=== PATIENT | male | born 1955 | race Caucasian/White ===

== ENCOUNTER 2017-04-14 09:23 | Inpatient (IN) | payer OTHER ==
[~2017-04-14] VITALS: Ht 175.3 cm; Wt 80.8 kg
[2017-04-14] MEDS ORDERED: TAMS0.4C31 PO (09:45)
[2017-04-14] MEDS ORDERED: FINA5TAB11 PO (09:45)
[2017-04-14] MEDS ORDERED: LISI-604 PO (09:45)
[2017-04-14] MEDS ORDERED: ATEN50TA PO (09:45)
[2017-04-14] MEDS ORDERED: KETOROLAC 30MG/ML VIAL IV ONE (10:45)
[2017-04-14 10:49] LABS: BASOPHILS % 0.7 % (0.0-2.0); EOSINOPHILS % 0.7 % (0.0-5.0); HEMOGLOBIN. 15.2 g/dL (14.0-18.0); MEAN CORPUSCULAR HEMOGLOBIN 29.2 pg (28.0-32.0); MEAN CORPUSCULAR VOLUME 86.4 fL (80.0-94.0); MONOCYTES % 7.8 % (2.0-8.0); NEUTROPHILS % 71.8 % (40.0-76.0); PLATELET 240 x1000/uL (130-400); RED CELL DISTRIBUTION WIDTH 12.8 % (11.6-14.6)
[2017-04-14 10:58] LABS: INR 1.1; PROTHROMBIN TIME 10.9 sec (9.4-11.6)
[2017-04-14 11:07] LABS: CARBON DIOXIDE 24 mEq/L (21-32); CHLORIDE 108 mEq/L (98-107); TROPONIN I < 0.02 ng/mL (0.00-0.04)
[2017-04-14] MEDS ORDERED: ENOXAPARIN 80MG/0.8ML SYR SUBCUT ONE (11:15)
[2017-04-14] MEDS ORDERED: ASPIRIN 325MG EC TABLET PO ONE (11:15)
[2017-04-14] MEDS ORDERED: MORPHINE SULFATE 4 MG/ML CPJ (NOT FOR IM USE) IV ONE (11:45)
[2017-04-14] MEDS ORDERED: DILTIAZEM HCL 5MG/ML 5ML VIAL IV PRN (11:45)
[2017-04-14] MEDS ORDERED: MAGNESIUM/ALUMINUM HYDROXIDE/SIMETHICONE 30ML UDC PO PRN (12:15)
[2017-04-14] MEDS ORDERED: ONDANSETRON HCL 4MG/2ML VIAL IV PRN (12:15)
[2017-04-14] MEDS ORDERED: CLONIDINE 0.1MG TABLET PO PRN (12:15)
[2017-04-14] MEDS ORDERED: ACETAMINOPHEN 325MG TABLET PO PRN (12:15)
[2017-04-14] MEDS ORDERED: IPRATROPIUM/ALBUTEROL 0.5-3(2.5)MG/3ML NEB INH PRN (12:15)
[2017-04-14 13:45] VITALS: BP 142/85
[2017-04-14 13:57] VITALS: BP 142/85
[2017-04-14] MEDS: METOPROLOL TARTRATE 50MG TABLET PO SCH ×2 (14:22→21:00)
[2017-04-14 15:58] VITALS: BP 125/75
[2017-04-14] MEDS ORDERED: DILTIAZEM HCL 60MG TABLET PO SCH (16:00)
[2017-04-14] MEDS: DIGOXIN 500MCG/2ML AMP IV SCH ×2 (16:49→17:38)
[2017-04-14 17:26] LABS: CREATINE KINASE 43 IU/L (39-308); CREATINE KINASE MB FRACTION 0.6 ng/mL (0.5-3.6); TROPONIN I < 0.02 ng/mL (0.00-0.04)
[2017-04-14 17:58] VITALS: BP 139/97
[2017-04-14 20:00] VITALS: BP 112/70
[2017-04-14] MEDS: ENOXAPARIN 80MG/0.8ML SYR SUBCUT SCH (21:19)
[2017-04-14] MEDS: TAMSULOSIN HCL 0.4MG SR CAPSULE PO SCH (21:19)
[2017-04-14] MEDS: LISINOPRIL 10MG TABLET PO SCH (21:20)
[2017-04-14] MEDS: FINASTERIDE 5MG TABLET PO SCH (21:20)
[2017-04-14 22:00] VITALS: BP 118/77
[2017-04-15] VITALS (12 sets, daily range): BP systolic 90–136; BP diastolic 57–73
[2017-04-15 01:26] LABS: CREATINE KINASE 37 IU/L (39-308); CREATINE KINASE MB FRACTION 0.5 ng/mL (0.5-3.6); TROPONIN I < 0.02 ng/mL (0.00-0.04)
[2017-04-15] MEDS: HYDROCODONE/ACETAMINOPHEN 5/325MG TABLET PO PRN ×2 (04:33→21:40)
[2017-04-15 05:53] LABS: *AMPHETAMINES SCREEN URINE NEGATIVE (NEGATIVE); *BARBITURATES SCREEN URINE NEGATIVE (NEGATIVE); *BENZODIAZEPINES SCREEN URINE NEGATIVE (NEGATIVE); *COCAINE SCREEN URINE NEGATIVE (NEGATIVE); CANNABINOID URINE SCREEN NEGATIVE (NEGATIVE); METHADONE URINE SCREEN NEGATIVE (NEGATIVE); OPIATES URINE SCREEN PRESUMTIVE POSITIVE (NEGATIVE); PHENCYCLIDINE URINE SCREEN NEGATIVE (NEGATIVE)
[2017-04-15 06:58] LABS: BASOPHILS % 0.5 % (0.0-2.0); EOSINOPHILS % 1.5 % (0.0-5.0); HEMATOCRIT. 41.4 % (42.0-52.0); HEMOGLOBIN. 14.1 g/dL (14.0-18.0); LYMPHOCYTES % 30.7 % (20.0-50.0); MEAN CORPUSCULAR HEMOGLOBIN 29.8 pg (28.0-32.0); MEAN CORPUSCULAR VOLUME 87.4 fL (80.0-94.0); MEAN PLATELET VOLUME 8.5 fl (7.4-10.4); MONOCYTES % 8.9 % (2.0-8.0); NEUTROPHILS % 58.4 % (40.0-76.0); PLATELET 215 x1000/uL (130-400); RED BLOOD CELL COUNT 4.74 mill/uL (4.7-6.1)
[2017-04-15 07:24] LABS: CHLORIDE 106 mEq/L (98-107)
[2017-04-15 07:36] LABS: CARBON DIOXIDE 25 mEq/L (21-32); HDL CHOLESTEROL 37 mg/dL (40-59); LDL CHOLESTEROL 109 mg/dL (5-100); TROPONIN I < 0.02 ng/mL (0.00-0.04)
[2017-04-15] MEDS: ENOXAPARIN 80MG/0.8ML SYR SUBCUT SCH (08:40)
[2017-04-15] MEDS: TAMSULOSIN HCL 0.4MG SR CAPSULE PO SCH (08:40)
[2017-04-15] MEDS: LISINOPRIL 10MG TABLET PO SCH ×2 (08:41→21:40)
[2017-04-15] MEDS: FINASTERIDE 5MG TABLET PO SCH (08:41)
[2017-04-15] MEDS: METOPROLOL TARTRATE 50MG TABLET PO SCH ×2 (08:41→21:40)
[2017-04-15] MEDS: ASPIRIN 81MG EC TABLET PO SCH (08:41)
[2017-04-15] MEDS ORDERED: RIVAROXABAN 20 MG TABLET PO SCH (17:20)
[2017-04-16] VITALS (8 sets, daily range): BP systolic 95–119; BP diastolic 35–72
[2017-04-16 06:41] LABS: BASOPHILS % 0.6 % (0.0-2.0); EOSINOPHILS % 3.1 % (0.0-5.0); HEMATOCRIT. 41.1 % (42.0-52.0); HEMOGLOBIN. 14.1 g/dL (14.0-18.0); LYMPHOCYTES % 31.2 % (20.0-50.0); MEAN CORPUSCULAR VOLUME 87.4 fL (80.0-94.0); MEAN PLATELET VOLUME 8.2 fl (7.4-10.4); MONOCYTES % 9.6 % (2.0-8.0); NEUTROPHILS % 55.5 % (40.0-76.0); PLATELET 213 x1000/uL (130-400)
[2017-04-16 06:57] LABS: CARBON DIOXIDE 28 mEq/L (21-32); CHLORIDE 106 mEq/L (98-107)
[2017-04-16] MEDS: METOPROLOL TARTRATE 50MG TABLET PO SCH (08:07)
[2017-04-16] MEDS: LISINOPRIL 10MG TABLET PO SCH (08:07)
[2017-04-16] MEDS: TAMSULOSIN HCL 0.4MG SR CAPSULE PO SCH (08:08)
[2017-04-16] MEDS: ASPIRIN 81MG EC TABLET PO SCH (08:08)
[2017-04-16] MEDS: FINASTERIDE 5MG TABLET PO SCH (08:08)
== END 2017-04-16 12:38 | disposition home or self-care (01) | DRG 309 ==
LOC: ER 10:07 → 3WST 11:15 → EDBEDREQ 11:18 → EDBEDREQTM 11:18 → ENRESERV 13:15
PROVIDERS: ADMIT Internal Medicine; ATTEND Internal Medicine
DX: I48.0 Paroxysmal atrial fibrillation (principal); I24.9 Acute ischemic heart disease, unspecified; I20.8 Other forms of angina pectoris; E11.65 Type 2 diabetes mellitus with hyperglycemia; G40.909 Epilepsy, unspecified, not intractable, without status epilepticus; I10 Essential (primary) hypertension; N40.0 Benign prostatic hyperplasia without lower urinary tract symptoms; R79.1 Abnormal coagulation profile; Z79.899 Other long term (current) drug therapy; Z82.41 Family history of sudden cardiac death; Z82.49 Family history of ischemic heart disease and other diseases of the circulatory system; Z90.49 Acquired absence of other specified parts of digestive tract
CPT/HCPCS: 36415; 71010; 80048; 80053; 80061; 80305; 82550; 82553; 83036; 83735; 83880; 84443; 84484; 85025; 85379; 85610; 93005; 93306; 93970; 96374; 96375; 99285; J1650; J1885; J2270; J2405

== ENCOUNTER 2017-05-10 21:34 | Emergency (ER) | payer OTHER ==
[~2017-05-10] VITALS: Ht 167.6 cm; Wt 81.0 kg
[~2017-05-10 21:34] MED LIST: ATEN50TA PO; FINA5TAB11 PO; LISI-604 PO; TAMS0.4C31 PO
[2017-05-10 23:24] LABS: BASOPHILS % 1.1 % (0.0-2.0); HEMATOCRIT. 43.2 % (42.0-52.0); HEMOGLOBIN. 14.7 g/dL (14.0-18.0); MEAN CORPUSCULAR HEMOGLOBIN 30.1 pg (28.0-32.0); MONOCYTES % 11.7 % (2.0-8.0); NEUTROPHILS % 51.2 % (40.0-76.0); PLATELET 224 x1000/uL (130-400); RED CELL DISTRIBUTION WIDTH 12.8 % (11.6-14.6)
[2017-05-10 23:29] LABS: INR 1.4; PROTHROMBIN TIME 14.6 sec (9.4-11.6)
[2017-05-10 23:37] LABS: CARBON DIOXIDE 22 mEq/L (21-32); CHLORIDE 109 mEq/L (98-107); TROPONIN I < 0.02 ng/mL (0.00-0.04)
[2017-05-11] MEDS ORDERED: HYDROCODONE/ACETAMINOPHEN 5/325MG TABLET PO NR (01:15)
[2017-05-11] MEDS ORDERED: KETOROLAC 30MG/ML VIAL IV ONE (04:00)
[2017-05-11 05:00] VITALS: BP 110/70
== END 2017-05-11 05:08 | disposition home or self-care (01) ==
LOC: ER 21:34
DX: I48.91 Unspecified atrial fibrillation (principal); R07.89 Other chest pain; I10 Essential (primary) hypertension; N40.0 Benign prostatic hyperplasia without lower urinary tract symptoms; Z90.49 Acquired absence of other specified parts of digestive tract
CPT/HCPCS: 36415; 71010; 80053; 83880; 84484; 85025; 85610; 93005; 96374; 99285; J1885; Z7610

== ENCOUNTER 2018-10-17 23:15 | Inpatient (IN) | payer OTHER ==
[~2018-10-17] VITALS: Ht 172.7 cm; Wt 79.8 kg
[2018-10-18] MEDS ORDERED: ASPIRIN 81MG TABLET PO ONE (02:15)
[2018-10-18] MEDS: NITROGLYCERIN 0.4MG TABLET SL SL PRN ×3 (02:42→10:49)
[2018-10-18 02:51] LABS: BASOPHILS % 1.2 % (0.0-2.0); EOSINOPHILS % 1.8 % (0.0-5.0); HEMATOCRIT. 44.6 % (42.0-52.0); HEMOGLOBIN. 15.1 g/dL (14.0-18.0); LYMPHOCYTES % 26.8 % (20.0-50.0); MEAN CORPUSCULAR HEMOGLOBIN 30.5 pg (28.0-32.0); MEAN CORPUSCULAR VOLUME 89.9 fL (80.0-94.0); MEAN PLATELET VOLUME 8.6 fl (7.4-10.4); MONOCYTES % 8.1 % (2.0-8.0); NEUTROPHILS % 62.1 % (40.0-76.0); PLATELET 204 x1000/uL (130-400); RED BLOOD CELL COUNT 4.97 mill/uL (4.7-6.1); RED CELL DISTRIBUTION WIDTH 13.6 % (11.6-14.6)
[2018-10-18 02:57] LABS: CHLORIDE 108 mEq/L (98-107)
[2018-10-18 03:05] LABS: D-DIMER < 0.19 mg/L FEU (<0.50); INR 1.1; PARTIAL THROMBOPLASTIN TIME 26.5 sec (23.4-31.0); PROTHROMBIN TIME 10.9 sec (9.1-11.1)
[2018-10-18] MEDS ORDERED: IPRATROPIUM/ALBUTEROL 0.5-3(2.5)MG/3ML NEB INH PRN (07:00)
[2018-10-18] MEDS ORDERED: HYDROMORPHONE HCL/PF 2MG/ML CPJ IV PRN (07:00)
[2018-10-18] MEDS ORDERED: ACETAMINOPHEN 325MG TABLET PO PRN (07:00)
[2018-10-18] MEDS ORDERED: HYDROCODONE/ACETAMINOPHEN 10/325MG TABLET PO PRN (07:00)
[2018-10-18] MEDS ORDERED: CLONIDINE 0.1MG TABLET PO PRN (07:00)
[2018-10-18] MEDS ORDERED: DIPHENHYDRAMINE 50MG/ML VIAL IV PRN (07:00)
[2018-10-18] MEDS ORDERED: GUAIFENESIN 200MG/10ML SUGAR FREE UDC PO PRN (07:00)
[2018-10-18] MEDS ORDERED: MAGNESIUM/ALUMINUM HYDROXIDE/SIMETHICONE 30ML UDC PO PRN (07:00)
[2018-10-18] MEDS ORDERED: ONDANSETRON HCL 4MG/2ML INJ IV PRN (07:00)
[2018-10-18] MEDS ORDERED: DOCUSATE SODIUM 100MG CAPSULE PO PRN (07:00)
[2018-10-18] MEDS ORDERED: LORAZEPAM 2MG/ML CPJ IV PRN (07:00)
[2018-10-18] MEDS ORDERED: HYDRALAZINE 20MG/ML VIAL IV PRN (10:00)
[2018-10-18 10:10] VITALS: BP 154/69
[2018-10-18 12:00] VITALS: BP 118/64
[2018-10-18] MEDS: ATENOLOL 50 MG TABLET PO SCH (14:02)
[2018-10-18] MEDS: SODIUM CHLORIDE 0.9% INJ 3ML FLUSH IVF SCH ×2 (14:03→22:24)
[2018-10-18 15:28] LABS: CREATINE KINASE 45 IU/L (39-308)
[2018-10-18 15:29] LABS: CREATINE KINASE MB FRACTION < 1.0 ng/mL (0.5-3.6)
[2018-10-18 16:00] VITALS: BP 123/69
[2018-10-18] MEDS ORDERED: RIVAROXABAN 20 MG TABLET PO SCH (17:00)
[2018-10-18 20:00] VITALS: BP 120/64
[2018-10-18 23:24] LABS: CREATINE KINASE 44 IU/L (39-308)
[2018-10-18 23:27] LABS: CREATINE KINASE MB FRACTION < 1.0 ng/mL (0.5-3.6)
[2018-10-19] VITALS: BP 121/61
[2018-10-19 04:00] VITALS: BP 117/60
[2018-10-19] MEDS: SODIUM CHLORIDE 0.9% INJ 3ML FLUSH IVF SCH (06:01)
[2018-10-19 06:11] LABS: EOSINOPHILS % 1.8 % (0.0-5.0); HEMATOCRIT. 43.2 % (42.0-52.0); HEMOGLOBIN. 14.7 g/dL (14.0-18.0); LYMPHOCYTES % 21.9 % (20.0-50.0); MEAN CORPUSCULAR HEMOGLOBIN 30.7 pg (28.0-32.0); MEAN CORPUSCULAR VOLUME 90.4 fL (80.0-94.0); MEAN PLATELET VOLUME 8.5 fl (7.4-10.4); MONOCYTES % 8.8 % (2.0-8.0); NEUTROPHILS % 66.5 % (40.0-76.0); PLATELET 213 x1000/uL (130-400); RED BLOOD CELL COUNT 4.78 mill/uL (4.7-6.1); RED CELL DISTRIBUTION WIDTH 13.8 % (11.6-14.6)
[2018-10-19 07:03] LABS: CHLORIDE 108 mEq/L (98-107)
[2018-10-19 07:21] LABS: LDL CHOLESTEROL 112 mg/dL (5-100)
[2018-10-19 07:23] LABS: HDL CHOLESTEROL 47 mg/dL (40-59)
[2018-10-19 07:24] LABS: T4 FREE 1.46 ng/dL (0.76-1.46)
[2018-10-19 08:00] VITALS: BP 129/62
[2018-10-19] MEDS: ATENOLOL 50 MG TABLET PO SCH (08:17)
[2018-10-19 08:26] VITALS: BP 129/62
[2018-10-19] MEDS ORDERED: LISINOPRIL 10MG TABLET PO SCH (09:00)
== END 2018-10-19 10:20 | disposition home or self-care (01) | DRG 206 ==
LOC: ER 23:15 → 8WST 10-18 04:02 → EDBEDREQTM 10-18 04:09 → EDBEDREQ 10-18 04:09 → ENRESERV 10-18 07:03 → 8WST 10-18 10:09
PROVIDERS: ADMIT Internal Medicine; ATTEND Internal Medicine
DX: M94.0 Chondrocostal junction syndrome [Tietze] (principal); I48.92 Unspecified atrial flutter; I10 Essential (primary) hypertension; I48.91 Unspecified atrial fibrillation; N40.0 Benign prostatic hyperplasia without lower urinary tract symptoms; Z79.01 Long term (current) use of anticoagulants; Z79.899 Other long term (current) drug therapy; Z82.49 Family history of ischemic heart disease and other diseases of the circulatory system; Z90.49 Acquired absence of other specified parts of digestive tract
CPT/HCPCS: 36415; 71045; 80061; 82550; 82553; 83036; 83880; 84439; 84443; 84484; 85379; 93005; 93306; 96374; 96375; 99285; J1170

== ENCOUNTER 2019-04-29 09:18 | Inpatient (IN) | payer OTHER ==
[~2019-04-29] VITALS: Ht 170.2 cm; Wt 81.6 kg
[2019-04-29] MEDS ORDERED: ASPIRIN 81MG TABLET PO ONE (10:30)
[2019-04-29] MEDS: NITROGLYCERIN 0.4MG TABLET SL SL PRN ×3 (10:30→12:30)
[2019-04-29 12:15] LABS: BASOPHILS % 0.5 % (0.0-2.0); EOSINOPHILS % 0.3 % (0.0-5.0); HEMATOCRIT. 46.5 % (42.0-52.0); HEMOGLOBIN. 15.5 g/dL (14.0-18.0); MEAN CORPUSCULAR HEMOGLOBIN 30.3 pg (28.0-32.0); MEAN CORPUSCULAR VOLUME 90.9 fL (80.0-94.0); MEAN PLATELET VOLUME 8.7 fl (7.4-10.4); NEUTROPHILS % 85.2 % (40.0-76.0); PLATELET 224 x1000/uL (130-400); RED BLOOD CELL COUNT 5.11 mill/uL (4.7-6.1); RED CELL DISTRIBUTION WIDTH 13.3 % (11.6-14.6)
[2019-04-29 12:20] LABS: CHLORIDE 107 mEq/L (98-107)
[2019-04-29] MEDS ORDERED: ENOXAPARIN 100MG/ML SYR SUBCUT ONE (14:00)
[2019-04-29] MEDS ORDERED: ONDANSETRON HCL 4MG/2ML INJ IV PRN (16:30)
[2019-04-29] MEDS ORDERED: ACETAMINOPHEN 325MG TABLET PO PRN (16:30)
[2019-04-29] MEDS: RIVAROXABAN 10 MG TABLET PO SCH (17:00)
[2019-04-29] MEDS: MORPHINE SULFATE 2 MG/ML CPJ (NOT FOR IM USE) IV PRN (18:44)
[2019-04-29 18:52] VITALS: BP 141/75
[2019-04-29 20:00] VITALS: BP 121/62
[2019-04-29] MEDS ORDERED: METOPROLOL TARTRATE 25MG TABLET PO SCH (21:00)
[2019-04-29 21:03] LABS: HEPATITIS B SURFACE ANTIGEN NEGATIVE
[2019-04-29 21:33] LABS: HEPATITIS A AB IGM NEGATIVE (NEGATIVE)
[2019-04-30] VITALS (7 sets, daily range): BP systolic 114–153; BP diastolic 61–79
[2019-04-30 07:35] LABS: BASOPHILS % 0.9 % (0.0-2.0); EOSINOPHILS % 1.2 % (0.0-5.0); HEMATOCRIT. 44.4 % (42.0-52.0); HEMOGLOBIN. 14.7 g/dL (14.0-18.0); LYMPHOCYTES % 22.8 % (20.0-50.0); MEAN CORPUSCULAR HEMOGLOBIN 30.4 pg (28.0-32.0); MEAN CORPUSCULAR VOLUME 91.5 fL (80.0-94.0); MEAN PLATELET VOLUME 8.8 fl (7.4-10.4); MONOCYTES % 7.5 % (2.0-8.0); NEUTROPHILS % 67.6 % (40.0-76.0); PLATELET 241 x1000/uL (130-400); RED BLOOD CELL COUNT 4.85 mill/uL (4.7-6.1); RED CELL DISTRIBUTION WIDTH 13.4 % (11.6-14.6)
[2019-04-30 07:55] LABS: CHLORIDE 105 mEq/L (98-107)
[2019-04-30] MEDS: ASPIRIN 81MG EC TABLET PO SCH (08:56)
[2019-04-30] MEDS: LISINOPRIL 20MG TABLET PO SCH (08:56)
[2019-04-30] MEDS: METOPROLOL TARTRATE 25MG TABLET PO SCH ×2 (08:57→21:00)
[2019-04-30] MEDS: TAMSULOSIN HCL 0.4MG SR CAPSULE PO SCH (08:59)
[2019-04-30] MEDS: RIVAROXABAN 10 MG TABLET PO SCH (16:09)
[2019-04-30] MEDS: MORPHINE SULFATE 2 MG/ML CPJ (NOT FOR IM USE) IV PRN (16:09)
[2019-05-01] VITALS: BP 136/75
[2019-05-01 04:00] VITALS: BP 130/72
[2019-05-01 07:57] VITALS: BP 136/74
[2019-05-01 08:00] LABS: BASOPHILS % 0.7 % (0.0-2.0); EOSINOPHILS % 1.8 % (0.0-5.0); HEMATOCRIT. 45.5 % (42.0-52.0); HEMOGLOBIN. 15.2 g/dL (14.0-18.0); LYMPHOCYTES % 20.7 % (20.0-50.0); MEAN CORPUSCULAR HEMOGLOBIN 30.4 pg (28.0-32.0); MEAN CORPUSCULAR VOLUME 91.3 fL (80.0-94.0); MEAN PLATELET VOLUME 8.6 fl (7.4-10.4); MONOCYTES % 8.4 % (2.0-8.0); NEUTROPHILS % 68.4 % (40.0-76.0); PLATELET 228 x1000/uL (130-400); RED BLOOD CELL COUNT 4.99 mill/uL (4.7-6.1); RED CELL DISTRIBUTION WIDTH 13.4 % (11.6-14.6)
[2019-05-01] MEDS: METOPROLOL TARTRATE 25MG TABLET PO SCH (08:13)
[2019-05-01] MEDS: LISINOPRIL 20MG TABLET PO SCH (08:18)
[2019-05-01] MEDS: ASPIRIN 81MG EC TABLET PO SCH (08:18)
[2019-05-01] MEDS: TAMSULOSIN HCL 0.4MG SR CAPSULE PO SCH (08:19)
[2019-05-01 08:45] LABS: CHLORIDE 106 mEq/L (98-107)
[2019-05-01 11:43] VITALS: BP 106/56
[2019-05-01 11:51] VITALS: BP 96/56
== END 2019-05-01 12:30 | disposition home or self-care (01) | DRG 309 ==
LOC: ER 09:18 → 7WST 14:37 → ENRESERV 16:04
PROVIDERS: ADMIT Internal Medicine; ATTEND Internal Medicine
DX: I48.19 Other persistent atrial fibrillation (principal); E87.1 Hypo-osmolality and hyponatremia; I48.92 Unspecified atrial flutter; G40.909 Epilepsy, unspecified, not intractable, without status epilepticus; I10 Essential (primary) hypertension; R00.1 Bradycardia, unspecified; R74.0 Nonspecific elevation of levels of transaminase and lactic acid dehydrogenase [LDH]; I34.0 Nonrheumatic mitral (valve) insufficiency; N40.0 Benign prostatic hyperplasia without lower urinary tract symptoms; Z79.01 Long term (current) use of anticoagulants; Z82.3 Family history of stroke; Z82.49 Family history of ischemic heart disease and other diseases of the circulatory system; Z90.49 Acquired absence of other specified parts of digestive tract; Z79.899 Other long term (current) drug therapy
CPT/HCPCS: 36415; 71045; 80048; 83880; 84484; 86705; 86709; 86803; 87340; 93005; 93306; 96372; 99285; J1650; J2270

== ENCOUNTER 2019-07-21 18:37 | Inpatient (IN) | payer OTHER ==
[~2019-07-21] VITALS: Ht 175.3 cm; Wt 79.8 kg
[2019-07-21] MEDS ORDERED: MORPHINE SULFATE 4 MG/ML CPJ (NOT FOR IM USE) IV STA (20:01)
[2019-07-21] MEDS ORDERED: ONDANSETRON HCL 4MG/2ML INJ IV STA (20:01)
[2019-07-21 20:49] LABS: CLARITY URINE CLEAR (CLEAR); COLOR URINE YELLOW (YELLOW); KETONES URINE 2+ (NEGATIVE); LEUKOCYTE ESTERASE URINE NEGATIVE (NEGATIVE); NITRITE URINE NEGATIVE (NEGATIVE); OCCULT BLOOD URINE NEGATIVE (NEGATIVE); PROTEIN URINE NEGATIVE (NEGATIVE); SPECIFIC GRAVITY URINE 1.027 (1.005-1.030); UROBILINOGEN URINE 0.2 E.U./dL (0.2-1.0)
[2019-07-21 21:09] LABS: *AMPHETAMINES SCREEN URINE NEGATIVE (NEGATIVE); *BARBITURATES SCREEN URINE NEGATIVE (NEGATIVE); *BENZODIAZEPINES SCREEN URINE NEGATIVE (NEGATIVE); *COCAINE SCREEN URINE NEGATIVE (NEGATIVE)
[2019-07-21 21:10] LABS: CANNABINOID URINE SCREEN NEGATIVE (NEGATIVE); METHADONE URINE SCREEN NEGATIVE (NEGATIVE); OPIATES URINE SCREEN NEGATIVE (NEGATIVE); PHENCYCLIDINE URINE SCREEN NEGATIVE (NEGATIVE)
[2019-07-21] MEDS ORDERED: LEVOFLOXACIN 750MG PREMIX 150 ML IV ONE (21:30)
[2019-07-21 21:40] LABS: BASOPHILS % 0.6 % (0.0-2.0); EOSINOPHILS % 0.2 % (0.0-5.0); HEMATOCRIT. 40.6 % (42.0-52.0); HEMOGLOBIN. 13.7 g/dL (14.0-18.0); LYMPHOCYTES % 7.5 % (20.0-50.0); MEAN CORPUSCULAR HEMOGLOBIN 29.9 pg (28.0-32.0); MEAN CORPUSCULAR VOLUME 88.6 fL (80.0-94.0); MEAN PLATELET VOLUME 8.1 fl (7.4-10.4); MONOCYTES % 5.6 % (2.0-8.0); NEUTROPHILS % 86.1 % (40.0-76.0); PLATELET 221 x1000/uL (130-400); RED BLOOD CELL COUNT 4.58 mill/uL (4.7-6.1); RED CELL DISTRIBUTION WIDTH 13.7 % (11.6-14.6)
[2019-07-21 21:44] LABS: CHLORIDE 107 mEq/L (98-107)
[2019-07-21 21:47] LABS: INR 1.5; PARTIAL THROMBOPLASTIN TIME 32.7 sec (23.4-31.0); PROTHROMBIN TIME 14.8 sec (9.6-11.0)
[2019-07-21 21:48] LABS: ETHANOL BLOOD < 10 mg/dL
[2019-07-21] MEDS ORDERED: GUAIFENESIN 200MG/10ML SUGAR FREE UDC PO PRN (22:15)
[2019-07-21] MEDS ORDERED: MAGNESIUM/ALUMINUM HYDROXIDE/SIMETHICONE 30ML UDC PO PRN (22:15)
[2019-07-21] MEDS ORDERED: ONDANSETRON HCL 4MG/2ML INJ IV PRN (22:15)
[2019-07-21] MEDS ORDERED: IPRATROPIUM/ALBUTEROL 0.5-3(2.5)MG/3ML NEB NEB PRN (22:15)
[2019-07-21] MEDS ORDERED: ACETAMINOPHEN 325MG TABLET PO PRN (22:15)
[2019-07-21] MEDS ORDERED: KETOROLAC 15MG/ML VIAL IV PRN (22:15)
[2019-07-21] MEDS ORDERED: LORAZEPAM 0.5MG TABLET PO PRN (22:15)
[2019-07-21] MEDS ORDERED: NITROGLYCERIN 0.4MG TABLET SL SL PRN (22:15)
[2019-07-21] MEDS ORDERED: ZOLPIDEM TARTRATE 5MG TABLET PO PRN (22:15)
[2019-07-21] MEDS ORDERED: TRAMADOL 50MG TABLET PO PRN (22:15)
[2019-07-21] MEDS ORDERED: CLONIDINE 0.1MG TABLET PO PRN (22:15)
[2019-07-21 23:05] LABS: T4 FREE 1.65 ng/dL (0.76-1.46)
[2019-07-21 23:27] LABS: FOLIC ACID (FOLATE) SERUM 13.7 ng/mL (>5.38)
[2019-07-22 00:30] VITALS: BP 116/65
[2019-07-22] MEDS ORDERED: ENOXAPARIN 100MG/ML SYR SUBCUT SCH ×2 (01:00→03:00)
[2019-07-22] MEDS ORDERED: RIVA20TA MT (01:16)
[2019-07-22] MEDS ORDERED: AMIO100T4 PO (01:16)
[2019-07-22] MEDS ORDERED: ASPI-1497 MT (01:16)
[2019-07-22 04:00] VITALS: BP 126/58
[2019-07-22 08:00] VITALS: BP 107/57
[2019-07-22] MEDS ORDERED: METOPROLOL TARTRATE 25MG TABLET PO SCH (09:00)
[2019-07-22 09:53] LABS: CREATINE KINASE MB FRACTION 2.5 ng/mL (0.5-3.6)
[2019-07-22] MEDS: FAMOTIDINE 20MG TABLET PO SCH ×2 (10:08→21:01)
[2019-07-22] MEDS: FUROSEMIDE 40MG/4ML VIAL IVP SCH ×2 (10:08→21:02)
[2019-07-22] MEDS: ASPIRIN 325MG EC TABLET PO SCH (10:09)
[2019-07-22] MEDS: SPIRONOLACTONE 25MG TABLET PO SCH ×2 (10:09→21:01)
[2019-07-22 12:00] VITALS: BP 106/59
[2019-07-22] MEDS ORDERED: INFLUENZA VIRUS VACCINE(AFLURIA) 0.5ML SYR IM ONE (12:00)
[2019-07-22 16:00] VITALS: BP 144/64
[2019-07-22] MEDS: ENOXAPARIN 80MG/0.8ML SYR SUBCUT SCH (18:03)
[2019-07-22 20:00] VITALS: BP 142/74
[2019-07-22] MEDS: METOPROLOL TARTRATE 25MG TABLET PO SCH (21:00)
[2019-07-23] VITALS: BP 116/62
[2019-07-23 03:57] VITALS: BP 113/57
[2019-07-23] MEDS: ENOXAPARIN 80MG/0.8ML SYR SUBCUT SCH (05:58)
[2019-07-23 08:00] VITALS: BP 141/68
[2019-07-23] MEDS: METOPROLOL TARTRATE 25MG TABLET PO SCH ×2 (09:00→21:00)
[2019-07-23 09:13] LABS: BASOPHILS % 0.9 % (0.0-2.0); EOSINOPHILS % 1.7 % (0.0-5.0); HEMATOCRIT. 44.7 % (42.0-52.0); HEMOGLOBIN. 14.9 g/dL (14.0-18.0); LYMPHOCYTES % 24.6 % (20.0-50.0); MEAN CORPUSCULAR HEMOGLOBIN 29.8 pg (28.0-32.0); MEAN CORPUSCULAR VOLUME 89.3 fL (80.0-94.0); MONOCYTES % 9.4 % (2.0-8.0); NEUTROPHILS % 63.4 % (40.0-76.0); PLATELET 252 x1000/uL (130-400); RED BLOOD CELL COUNT 5.01 mill/uL (4.7-6.1); RED CELL DISTRIBUTION WIDTH 14.1 % (11.6-14.6)
[2019-07-23 09:32] LABS: CHLORIDE 106 mEq/L (98-107)
[2019-07-23] MEDS: DOCUSATE SODIUM 100MG CAPSULE PO PRN ×2 (09:33→16:52)
[2019-07-23] MEDS: FAMOTIDINE 20MG TABLET PO SCH (09:33)
[2019-07-23] MEDS: ASPIRIN 325MG EC TABLET PO SCH (09:33)
[2019-07-23] MEDS: FUROSEMIDE 40MG/4ML VIAL IVP SCH (09:34)
[2019-07-23] MEDS: SPIRONOLACTONE 25MG TABLET PO SCH (09:34)
[2019-07-23 09:40] LABS: CREATINE KINASE 45 IU/L (39-308)
[2019-07-23 09:42] LABS: CREATINE KINASE MB FRACTION 1.3 ng/mL (0.5-3.6)
[2019-07-23 12:00] VITALS: BP 155/80
[2019-07-23 16:00] VITALS: BP 137/75
[2019-07-23 20:00] VITALS: BP 156/82
[2019-07-23] MEDS: FAMOTIDINE 40MG TABLET PO SCH (21:58)
[2019-07-24] VITALS: BP 115/62
[2019-07-24 04:00] VITALS: BP 108/71
[2019-07-24 08:00] VITALS: BP 107/67
[2019-07-24 08:07] LABS: BASOPHILS % 0.8 % (0.0-2.0); EOSINOPHILS % 1.8 % (0.0-5.0); HEMATOCRIT. 45.2 % (42.0-52.0); HEMOGLOBIN. 15.2 g/dL (14.0-18.0); LYMPHOCYTES % 19.1 % (20.0-50.0); MEAN CORPUSCULAR HEMOGLOBIN 29.8 pg (28.0-32.0); MEAN CORPUSCULAR VOLUME 88.8 fL (80.0-94.0); MEAN PLATELET VOLUME 8.8 fl (7.4-10.4); MONOCYTES % 9.7 % (2.0-8.0); NEUTROPHILS % 68.6 % (40.0-76.0); PLATELET 261 x1000/uL (130-400); RED BLOOD CELL COUNT 5.09 mill/uL (4.7-6.1)
[2019-07-24 08:15] LABS: CHLORIDE 105 mEq/L (98-107)
[2019-07-24] MEDS: METOPROLOL TARTRATE 25MG TABLET PO SCH ×2 (08:58→20:47)
[2019-07-24] MEDS: FAMOTIDINE 40MG TABLET PO SCH ×2 (08:58→20:47)
[2019-07-24] MEDS: ASPIRIN 81MG EC TABLET PO SCH (08:58)
[2019-07-24] MEDS ORDERED: LACTULOSE 20G/30ML UDC PO PRN (09:30)
[2019-07-24 12:00] VITALS: BP 111/72
[2019-07-24 16:00] VITALS: BP 112/62
[2019-07-24] MEDS ORDERED: RIVAROXABAN 20 MG TABLET PO SCH (17:00)
[2019-07-24 20:00] VITALS: BP 147/63
[2019-07-25] VITALS: BP 130/63
[2019-07-25 04:00] VITALS: BP 130/62
[2019-07-25] MEDS: METOPROLOL TARTRATE 25MG TABLET PO SCH (08:34)
[2019-07-25] MEDS: ASPIRIN 81MG EC TABLET PO SCH (08:34)
[2019-07-25] MEDS: FAMOTIDINE 40MG TABLET PO SCH (08:34)
[2019-07-25 11:28] VITALS: BP 145/70
== END 2019-07-25 12:00 | disposition home or self-care (01) | DRG 280 ==
LOC: ER 18:37 → 5WST 21:57 → EDBEDREQTM 22:01 → EDBEDREQ 22:01 → ENRESERV 23:10
PROVIDERS: ADMIT Internal Medicine; ATTEND Internal Medicine
DX: I21.4 Non-ST elevation (NSTEMI) myocardial infarction (principal); I50.31 Acute diastolic (congestive) heart failure; E44.1 Mild protein-calorie malnutrition; I48.0 Paroxysmal atrial fibrillation; D63.8 Anemia in other chronic diseases classified elsewhere; E83.51 Hypocalcemia; I11.0 Hypertensive heart disease with heart failure; I25.10 Atherosclerotic heart disease of native coronary artery without angina pectoris; N40.0 Benign prostatic hyperplasia without lower urinary tract symptoms; Z79.01 Long term (current) use of anticoagulants; Z90.49 Acquired absence of other specified parts of digestive tract; Z79.899 Other long term (current) drug therapy; Z82.49 Family history of ischemic heart disease and other diseases of the circulatory system; Z68.26 Body mass index [BMI] 26.0-26.9, adult
CPT/HCPCS: 36415; 71045; 80048; 80053; 80061; 80305; 80320; 81003; 82550; 82553; 82607; 82746; 83036; 83540; 83550; 83605; 83735; 83880; 84439; 84443; 84484; 85025; 90686; 93005; 93306; 93970; 96365; 96375; 99285; J1650; J1885; J1940; J1956; J2270; J2405; G0480